=== PATIENT | male | born 1970 | race Caucasian/White ===

== ENCOUNTER → 2021-12-21 10:23 | Outpatient (BNVA) | payer OTHER, SELFPAY | PROVIDERS: Visit Provider Surgery | DX: L72.0 Epidermal cyst (principal) | CPT/HCPCS: 99202 ==

== ENCOUNTER 2022-06-14 09:07 | Outpatient (REF) | payer OTHER, SELFPAY | END 2022-06-14 09:08 | disposition home or self-care (01) | LOC: HO.LNP 09:07 | PROVIDERS: Visit Provider Surgery | DX: L72.0 Epidermal cyst (principal) | CPT/HCPCS: 11402; 11404; 11406; 88304 ==

== ENCOUNTER → 2022-08-09 14:32 | Outpatient (BNVA) | payer OTHER, SELFPAY | PROVIDERS: Visit Provider Surgery | DX: L72.0 Epidermal cyst (principal) ==